=== PATIENT | female | born 1945 | race Caucasian/White ===

== ENCOUNTER → 2019-04-21 | Outpatient (CLI) | payer MEDICARE, OTHER ==
[2019-04-21 09:50] VITALS: BP 149/88; PULSE 78; RESP 16; TEMP 97.6; BMI 24.9
--- NOTE | 2019-04-21 10:29 | P.GSHP ---
History of Present Illness H&P Date: 04/21/19 Chief Complaint: jarett Guillory is a 73-year-old white female who presents for breast evaluation. A bilateral mammogram was performed on . This was felt to be stable benign breast tissue category 2 and repeat mammogram in 1 year was recommended. The patient does not feel anything of concern in her breast. She has no complaints of any nipple discharge or skin changes. She has no history of any trauma or infection of the breast. Pastora had a left breast biopsy done approximately 20 years ago this was a needle biopsy and was benign. Estimated BRCA1 test many years ago and this was negative. Francy model: 5 year risk 7.2% Lifetime risk 17.6% Family History: sister: breast cancer BRCA2 +, at 42 mother: breast cancer at 60 neice: 27 breast cancer maternal aunt: breast cancer 2 maternal cousin: breast cancer patient: basal cell cancer on nose Hormonal History: menarche: 14 G0 menopause: 55 BCP: 20 years hormones: none Surgical history: total knee bilateral carpal tunnel bilateral bunyon foot nose: basal cell Medical History: none Social History: smoke: none alcohol: twice a month drugs: none - Constitutional Constitutional: Denies chills, Denies fever - EENT Eyes: denies blurred vision, denies pain Ears: deny: decreased hearing, tinnitus Ears, nose, mouth and throat: Denies headache, Denies sore throat - Breasts Breasts: bilateral: as per HPI - Cardiovascular Cardiovascular: Denies chest pain, Denies shortness of breath - Respiratory Respiratory: Denies cough, Denies 7 - Gastrointestinal Gastrointestinal: Denies abdominal pain, Denies diarrhea, Denies nausea, Denies vomiting - Genitourinary (Female) Genitourinary: Denies dysuria, Denies hematuria - Menstruation Menstruation: Reports postmenopausal - Musculoskeletal Comment: osteoarthritis - Integumentary Comment: psorisis - Neurological Neurological: Denies numbness, Denies weakness - Psychiatric Psychiatric: Denies anxiety, Denies depression - Endocrine Endocrine: Denies fatigue, Denies weight change - Hematologic/Lymphatic Comment: none - Allergic/Immunologic Comment: none Allergic/Immunologic: Reports as per HPI Past Medical History History of Any Multi-Drug Resistant Organisms: None Reported Smoking Status: Never smoker Medications and Allergies Home Medications Medication Instructions Recorded Confirmed Type Krill Oil 1,000 mg PO DAILY 04/21/19 04/21/19 History levETIRAcetam [Keppra] 500 mg PO Q12HR 04/21/19 04/21/19 History Allergies Allergy/AdvReac Type Severity Reaction Status Date / Time No Known Allergies Allergy Unverified 04/21/19 09:50 Surgical - Exam Vital Signs Temp Pulse Resp BP Pulse Ox 97.6 F 78 16 149/88 100 04/21/19 09:45 04/21/19 09:45 04/21/19 09:45 04/21/19 09:45 04/21/19 09:45 BMI 24.9 - General well developed, well nourished, no distress - Eyes normal ocular movement - ENT no hearing loss, no congestion - Neck no masses, trachea midline - Respiratory normal expansion, normal respiratory effort, clear to auscultation - Cardiovascular Rhythm: regular Heart Sounds: normal: S1, S2 - Integumentary no rash, no abnormal pigmentation - Neurologic no disoriented, no combative - Musculoskeletal normal gait, normal posture - Psychiatric oriented to time, oriented to person, oriented to place, speech is normal, memory intact Breast examination: Right breast: Multi-positional exam fibrocystic changes no dominant masses or nodules of concern Right axilla: No adenopathy of concern Left breast: Multi-positional exam fibrocystic changes no dominant masses or nodules of concern Left axilla: No adenopathy of concern Results mammogram results reviewed Assessment and Plan Assessment: Impression: 1. fibrocystic breast disease 2. strong family history of breast cancer 3. patient history of basal cell cancer of nose 4. Francy model 7.1 % 5 year risk vs 2.2%,and 17.6 % lifetime risk vs. 5.7% We have discussed the fact that she is high risk based on her Francy model evaluation and the patient would consider genetic counseling to repeat her BRCA and other gene testing. Plan: 1. yearly mammograms 2. genetic [place] 3. appt with medical oncology for possible chemoprevention 4. follow up in one year CC: DR. No Mendoza
== END | disposition home or self-care (01) ==
LOC: WWCWWP 09:36
PROVIDERS: ATTEND Surgery
DX: Z53.9 Procedure and treatment not carried out, unspecified reason (principal)

== ENCOUNTER → 2019-11-24 | Outpatient (CLI) | payer MEDICARE, OTHER ==
[2019-11-24 12:57] VITALS: BP 155/85; PULSE 73; RESP 18; TEMP 98.1
--- NOTE | 2019-11-24 13:19 | P.PN ---
Progress Note - Text Progress Note Date: 11/24/19 Pastora is a 74-year-old white female who was noted to have a increased risk for development of breast cancer based and Francy risk assessment evaluation. She has a strong family history of breast cancer her sister had bilateral breast cancer at 42, this was BRCA2 +; her mother had breast cancer at 50, maternal aunt at 45, and a maternal cousin at 35. The patient states she had genetic testing performed through Dr. Alcantara,s office and was told that she did not have a genetic predisposition to development of cancer. We are awaiting those results. Her Francy model risk was estimated to be 7.2% of 5 years and 17.6% lifetime risk. The patient is . She does not use any estrogen products. At this time the patient has close surveillance related to her breasts. Her most recent bilateral mammogram was April,. This was stable benign BIRADS 2. The patient is not complaining of any lumps masses or nodules in either breast. The patient is fully aware of the option of chemoprevention. At this time she has opted not to take chemoprevention. If she changes her mind she will let us know. Otherwise she will be seen again at regular routine evaluation which will be in April 2020 with bilateral mammogram. She has any questions or concerns sooner she will call us. CC: Dr. No Mendoza
== END | disposition home or self-care (01) ==
LOC: WWCWWP 12:28
PROVIDERS: ATTEND Surgery
DX: Z53.9 Procedure and treatment not carried out, unspecified reason (principal)

== ENCOUNTER → 2020-04-26 | Outpatient (CLI) | payer MEDICARE, OTHER ==
--- NOTE | 2020-04-26 11:50 | P.PN ---
Subjective Progress Note Date: 04/26/20 Principal diagnosis: fibrocystic breast disease Pastora is a 74-year-old white female who presents for breast evaluation. A bilateral mammogram was performed on 04-20-20, this was done at [facility] and results are pending. The patient does not feel anything of concern in her breast. She has no complaints of any nipple discharge or skin changes. She has no history of any trauma or infection of the breast. Pastora had a left breast biopsy done approximately 20 years ago this was a needle biopsy and was benign. We have discussed chemoprevention secondary to risk analysis #Francy model however at this time Pastora wishes to just be followed closely. Genetic testing was performed on 2319 which was negative, no clinically significant variance detected Francy model: 5 year risk 7.7% Lifetime risk 17.8% Family History: sister: breast cancer BRCA2 +, at 42 mother: breast cancer at 60 niece: 27 breast cancer maternal aunt: breast cancer 2 maternal cousin: breast cancer patient: basal cell cancer on nose Hormonal History: menarche: 14 G0 menopause: 55 BCP: 20 years hormones: none Surgical history: total knee bilateral carpal tunnel bilateral bunion: foot nose: basal cell Medical History: none Social History: smoke: none alcohol: twice a month drugs: none - Constitutional Constitutional: Denies chills, Denies fever - EENT Eyes: denies blurred vision, denies pain Ears: deny: decreased hearing, tinnitus Ears, nose, mouth and throat: Denies headache, Denies sore throat - Breasts Breasts: bilateral: as per HPI - Cardiovascular Cardiovascular: Denies chest pain, Denies shortness of breath - Respiratory Respiratory: Denies cough - Gastrointestinal Gastrointestinal: Denies abdominal pain, Denies diarrhea, Denies nausea, Denies vomiting - Genitourinary (Female) Genitourinary: Denies dysuria, Denies hematuria - Menstruation Menstruation: Reports postmenopausal - Musculoskeletal Comment: osteoarthritis - Integumentary Comment: psorisis - Neurological Neurological: Denies numbness, Denies weakness - Psychiatric Psychiatric: Denies anxiety, Denies depression - Endocrine Endocrine: Denies fatigue, Denies weight change - Hematologic/Lymphatic Comment: none - Allergic/Immunologic Comment: none Allergic/Immunologic: Reports as per HPI Objective - Constitutional General appearance: Present: average body habitus - EENT Eyes: Present: EOMI ENT: Present: hearing grossly normal - Neck Neck: Present: normal ROM - Respiratory Respiratory: bilateral: CTA - Cardiovascular Rhythm: regular Heart sounds: normal: S1, S2 - Gastrointestinal General gastrointestinal: Present: normal bowel sounds, soft - Integumentary Integumentary: Present: normal turgor - Musculoskeletal Musculoskeletal: Present: gait normal - Psychiatric Psychiatric: Present: A&O x's 3, appropriate affect - Additional findings Additional findings: breast exam: bra: 34C inspection: grade 3 ptosis bilateral Patient: Right breast: Multi-positional exam fibrocystic changes, no dominant masses or nodules of concern Right axilla: No adenopathy of concern Left breast: Fibrocystic changes, no dominant masses or nodules of concern on multiple positional exam Left axilla: No adenopathy of concern Assessment and Plan Assessment: Impression: 1. high risk breast cancer/ Francy risk analysis done 2. fibrocystic breast changes Plan: 1. Obtain report on recent bilateral mammogram/ further recommendation to follow 2. Pending on results of recent bilateral mammogram condition to follow We have discussed chemoprevention regarding 5 year risk of breast cancer at 7.8%. At this time she wishes to be followed closely. CC: DR. No Mendoza encounter 15 minutes, > 50% of time in planning and counselling
[2020-04-26 11:55] VITALS: BP 137/65; PULSE 73; RESP 18; TEMP 98.4
== END | disposition home or self-care (01) ==
LOC: WWCWWP 11:32
PROVIDERS: ATTEND Surgery
DX: Z53.9 Procedure and treatment not carried out, unspecified reason (principal)

== ENCOUNTER → 2021-06-03 | Outpatient (CLI) | payer MEDICARE, OTHER ==
--- NOTE | 2021-06-03 11:06 | MM ---
Reason for exam: additional evaluation requested from abnormal screening. Last mammogram was performed 1 month ago. History: Patient is postmenopausal and is nulliparous. Family history of breast cancer in mother at age 63, breast cancer in sister at age 43, breast cancer in maternal aunt, and breast cancer in 2 cousins. Benign cyst aspiration of the left breast, 2000. Physical Findings: Nurse did not find any significant physical abnormalities on exam. MG 3D Work Up W/Cad HARSHA Bilateral spot compression CC, spot compression MLO, and LM view(s) were taken. Prior study comparison: May 10, 2021, mammogram. The breast tissue is heterogeneously dense. This may lower the sensitivity of mammography. There is no discrete abnormality including area of concern right and left compression. These results were verbally communicated with the patient and result sheet given to the patient on 06/03/21. ASSESSMENT: Benign, BI-RAD 2 RECOMMENDATION: Routine screening mammogram of both breasts in 1 year.
--- NOTE | 2021-06-03 11:07 | USB ---
Reason for exam: additional evaluation requested from abnormal screening. History: Patient is postmenopausal and is nulliparous. Family history of breast cancer in mother at age 63, breast cancer in sister at age 43, breast cancer in maternal aunt, and breast cancer in 2 cousins. Benign cyst aspiration of the left breast, 2000. US Breast Workup HARSHA Right complete breast ultrasound includes all four quadrants, the retroareolar region and axilla. Finding demonstrates no cystic or solid lesion seen. Left complete breast ultrasound includes all four quadrants, the retroareolar region and axilla. Finding demonstrates no cystic or solid lesion seen. These results were verbally communicated with the patient and result sheet given to the patient on 06/03/21. ASSESSMENT: Negative, BI-RAD 1 RECOMMENDATION: Routine screening mammogram of both breasts in 1 year. Manage patient on a clinical basis.
== END | disposition home or self-care (01) ==
LOC: RADMAMWWP 09:18
PROVIDERS: ATTEND Surgery
DX: R92.2 Inconclusive mammogram (principal); Z80.3 Family history of malignant neoplasm of breast; Z78.0 Asymptomatic menopausal state
CPT/HCPCS: 77066; 76641; G0279; 77062

== ENCOUNTER → 2021-06-21 | Outpatient (CLI) | payer MEDICARE, OTHER ==
[2021-06-21 11:15] VITALS: BP 136/83; PULSE 59; RESP 17; TEMP 98.5
--- NOTE | 2021-06-21 11:27 | P.PN ---
Subjective Progress Note Date: 06/21/21 Principal diagnosis: fibrocystic breast disease fibrocystic breast disease Pastora is a 76-year-old white female who presents for breast evaluation. A bilateral mammogram was performed on 06-03-21, this was BIRAD 1. The patient does not feel anything of concern in her breast. She has no complaints of any nipple discharge or skin changes. She has no history of any trauma or infection of the breast. Pastora had a left breast biopsy done approximately 21 years ago this was a needle biopsy and was benign. We have discussed chemoprevention secondary to risk analysis #Francy model however at this time Pastora wishes to just be followed closely. Genetic testing was performed on 2319 which was negative, no clinically significant variance detected Prior Francy model: 5 year risk 7.7% Lifetime risk 17.8% 2021 Francy Model: 5 year risk: 7.2% Lifetime risk: 14.8% Family History: sister: breast cancer BRCA2 +, at 42 mother: breast cancer at 60 niece: 27 breast cancer maternal aunt: breast cancer 2 maternal cousin: breast cancer patient: basal cell cancer on nose Hormonal History: menarche: 14 G0 menopause: 55 BCP: 20 years hormones: none Surgical history: total knee bilateral carpal tunnel bilateral bunion: foot nose: basal cell Medical History: none Social History: smoke: none alcohol: twice a month drugs: none - Constitutional Constitutional: Denies chills, Denies fever - EENT Eyes: denies blurred vision, denies pain Ears: deny: decreased hearing, tinnitus Ears, nose, mouth and throat: Denies headache, Denies sore throat - Breasts Breasts: bilateral: as per HPI - Cardiovascular Cardiovascular: Denies chest pain, Denies shortness of breath - Respiratory Respiratory: Denies cough - Gastrointestinal Gastrointestinal: Denies abdominal pain, Denies diarrhea, Denies nausea, Denies vomiting - Genitourinary (Female) Genitourinary: Denies dysuria, Denies hematuria - Menstruation Menstruation: Reports postmenopausal - Musculoskeletal Comment: osteoarthritis - Integumentary Comment: psorisis - Neurological Neurological: Denies numbness, Denies weakness - Psychiatric Psychiatric: Denies anxiety, Denies depression - Endocrine Endocrine: Denies fatigue, Denies weight change - Hematologic/Lymphatic Comment: none - Allergic/Immunologic Comment: none Allergic/Immunologic: Reports as per HPI Objective - Vital Signs Vital signs: Vital Signs Temp 98.5 F 06/21/21 11:07 Pulse 59 L 06/21/21 11:07 Resp 17 06/21/21 11:07 BP 136/83 06/21/21 11:07 Pulse Ox Intake & Output 06/20/21 06/21/21 06/21/21 18:59 06:59 18:59 Weight 68.039 kg - Exam BMI 25.7 - Constitutional General appearance: Present: cooperative - EENT Eyes: Present: EOMI ENT: Present: hearing grossly normal - Neck Neck: Present: normal ROM - Respiratory Respiratory: bilateral: CTA - Cardiovascular Rhythm: regular Heart sounds: normal: S1, S2 - Gastrointestinal General gastrointestinal: Present: soft - Integumentary Integumentary: Present: normal turgor - Musculoskeletal Musculoskeletal: Present: gait normal - Psychiatric Psychiatric: Present: A&O x's 3, appropriate affect, intact judgment & insight - Additional findings Additional findings: Breast Exam: BRA: 34C inspection: Bilateral grade 2/3 ptosis Palpation: Right breast: Multiple positional exam fibrocystic changes no dominant masses or nodules of concern Right axilla: No adenopathy of concern Left breast: Multi-positional exam fibrocystic changes no dominant masses or nodules of concern Left axilla: No adenopathy of concern Under both breasts are some mild fungal infection nystatin cream be given Assessment and Plan Assessment: Impression/Plan: 1. Positive family history of breast cancer 2. Francy risk evaluation lifetime risk 14.8%/we have discussed in the past chemoprevention and she has declined 3. Recent bilateral mammogram BIRADS 1/repeat mammogram in 1 year 4. If patient notes any changes or concerns she will call us sooner Cc: Dr. Mendoza
== END ==
LOC: WWCWWP 10:59
PROVIDERS: ATTEND Surgery
DX: N60.11 Diffuse cystic mastopathy of right breast (principal); N60.12 Diffuse cystic mastopathy of left breast; Z80.3 Family history of malignant neoplasm of breast

== ENCOUNTER → 2022-06-05 | Outpatient (CLI) | payer MEDICARE, OTHER ==
--- NOTE | 2022-06-06 07:42 | MM ---
Reason for Exam: Screening (asymptomatic). Last screening mammogram was performed 12 month(s) ago. Patient History: Menarche at age 14. Patient has no children. Postmenopausal. 2000, Benign Cyst Aspiration on the left side. Maternal cousin had breast cancer. Maternal cousin had breast cancer. Maternal aunt had breast cancer. Niece had breast cancer under age 50. Sister had breast cancer, age 43. Mother had breast cancer, age 63. Risk Values: Francy 5 year model risk: 6.1%. NCI Lifetime model risk: 12.7%. Prior Study Comparison: 05/10/2021 Screening Mammogram, Unknown. 06/03/2021 Bilateral Diagnostic Mammogram, [facility]. Tissue Density: The breast tissue is heterogeneously dense. This may lower the sensitivity of mammography. Findings: Analyzed By CAD. There is no suspicious group of microcalcifications or new suspicious mass in either breast. Benign-appearing calcifications within both breasts. No significant change from prior exams. Overall Assessment: Benign, BI-RAD 2 Management: Screening Mammogram of both breasts in 1 year. A clinical breast exam by your physician is recommended on an annual basis and results should be correlated with mammographic findings. Electronically signed and approved by: Rod Gallegos D.O.
== END | disposition home or self-care (01) ==
LOC: RADMAMWWP 10:01
PROVIDERS: ATTEND Surgery
DX: Z12.31 Encounter for screening mammogram for malignant neoplasm of breast (principal); Z78.0 Asymptomatic menopausal state; Z80.3 Family history of malignant neoplasm of breast; Z98.890 Other specified postprocedural states
CPT/HCPCS: 77063; 77067

== ENCOUNTER → 2022-06-12 | Outpatient (CLI) | payer MEDICARE, OTHER ==
--- NOTE | 2022-06-12 14:04 | P.PN ---
Subjective Progress Note Date: 06/12/22 Principal diagnosis: fibrocystic breast changes fibrocystic breast disease Pastora is a 77-year-old white female who presents for breast evaluation. A bilateral mammogram was performed on 06-05-22, this was BIRAD 2. The patient does not feel anything of concern in her breast. She has no complaints of any nipple discharge or skin changes. She has no history of any trauma or infection of the breast. Pastora had a left breast biopsy done approximately 22 years ago this was a needle biopsy and was benign. We have discussed chemoprevention secondary to risk analysis #Francy model however at this time Pastora wishes to just be followed closely. Genetic testing was performed on 2319 which was negative, no clinically significant variance detected Prior Francy model: 5 year risk 7.7% Lifetime risk 17.8% 2021 Francy Model: 5 year risk: 7.2% Lifetime risk: 14.8% 2022 Risk: 5 year 6.1% lifetime risk: 12.7% Family History: sister: breast cancer BRCA2 +, at 42 mother: breast cancer at 60 niece: 27 breast cancer maternal aunt: breast cancer 2 maternal cousin: breast cancer patient: basal cell cancer on nose Hormonal History: menarche: 14 G0 menopause: 55 BCP: 20 years hormones: none Surgical history: total knee bilateral carpal tunnel bilateral bunion: foot nose: basal cell Medical History: none Social History: smoke: none alcohol: twice a month drugs: none - Constitutional Constitutional: Denies chills, Denies fever - EENT Eyes: denies blurred vision, denies pain Ears: deny: decreased hearing, tinnitus Ears, nose, mouth and throat: Denies headache, Denies sore throat - Breasts Breasts: bilateral: as per HPI - Cardiovascular Cardiovascular: Denies chest pain, Denies shortness of breath - Respiratory Respiratory: Denies cough - Gastrointestinal Gastrointestinal: Denies abdominal pain, Denies diarrhea, Denies nausea, Denies vomiting - Genitourinary (Female) Genitourinary: Denies dysuria, Denies hematuria - Menstruation Menstruation: Reports postmenopausal - Musculoskeletal Comment: osteoarthritis - Integumentary Comment: psorisis - Neurological Neurological: Denies numbness, Denies weakness - Psychiatric Psychiatric: Denies anxiety, Denies depression - Endocrine Endocrine: Denies fatigue, Denies weight change - Hematologic/Lymphatic Comment: none - Allergic/Immunologic Comment: none Allergic/Immunologic: Reports as per HPI Objective - Constitutional General appearance: Present: cooperative - EENT Eyes: Present: EOMI ENT: Present: hearing grossly normal - Neck Neck: Present: normal ROM - Respiratory Respiratory: bilateral: CTA - Cardiovascular Rhythm: regular Heart sounds: normal: S1, S2 - Gastrointestinal General gastrointestinal: Present: soft - Integumentary Integumentary: Present: normal turgor - Musculoskeletal Musculoskeletal: Present: gait normal - Psychiatric Psychiatric: Present: A&O x's 3, appropriate affect, intact judgment & insight - Additional findings Additional findings: Breast Exam: BRA: 34C inspection: Bilateral grade 2/3 ptosis Palpation: Right breast: Multiple positional exam fibrocystic changes no dominant masses or nodules of concern Right axilla: No adenopathy of concern Left breast: Multi-positional exam fibrocystic changes no dominant masses or nodules of concern Left axilla: No adenopathy of concern Assessment and Plan Assessment: Impression/Plan: 1. Positive family history of breast cancer 2. Francy risk evaluation lifetime risk 14.8%/we have discussed in the past chemoprevention and she has declined again today 3. Recent bilateral mammogram BIRADs 2/ bilateral mammogram in 1 year 4. If patient notes any changes or concerns she will call us sooner Cc: Dr. Mendoza Additional CC's: No Mendoza
== END ==
LOC: WWCWWP 13:13
PROVIDERS: ATTEND Surgery
DX: Z80.3 Family history of malignant neoplasm of breast (principal)

== ENCOUNTER → 2023-06-09 | Outpatient (CLI) | payer MEDICARE, OTHER ==
--- NOTE | 2023-06-10 10:33 | MM ---
Reason for Exam: Screening (asymptomatic). Last mammogram was performed 1 year(s) and 1 month(s) ago. Patient History: Menarche at age 14. Patient has no children. Postmenopausal. 2000, Benign Cyst Aspiration on the left side. Maternal cousin had breast cancer. Maternal cousin had breast cancer. Maternal aunt had breast cancer. Niece had breast cancer under age 50. Sister had breast cancer, age 43. Mother had breast cancer, age 63. Risk Values: Francy 5 year model risk: 6.1%. NCI Lifetime model risk: 12.0%. Prior Study Comparison: 05/10/2021 Screening Mammogram, Unknown. 06/03/2021 Bilateral Diagnostic Mammogram, [facility]. 06/05/2022 Bilateral MG 3D screening mammo w/cad, [facility]. Tissue Density: The breast tissue is heterogeneously dense. This may lower the sensitivity of mammography. Findings: Analyzed By CAD. Pattern appears symmetrical and stable. A couple of benign-appearing punctate calcifications are present. No suspicious groups of microcalcifications, spiculated or lobular masses, architectural distortion or other secondary signs of malignancy are mammographically apparent. Overall Assessment: Benign, BI-RAD 2 Management: Screening Mammogram of both breasts in 1 year. A negative mammogram report should not preclude additional follow up of suspicious palpable abnormalities. Patient should continue monthly self breast exam. A clinical breast exam by your physician is recommended on an annual basis and results should be correlated with mammographic findings. Electronically signed and approved by: Carmine Jones D.O. Radiologis
== END | disposition home or self-care (01) ==
LOC: RADMAMWWP 10:20
PROVIDERS: ATTEND Surgery
DX: Z12.31 Encounter for screening mammogram for malignant neoplasm of breast (principal); Z78.0 Asymptomatic menopausal state; Z80.3 Family history of malignant neoplasm of breast
CPT/HCPCS: 77063; 77067

== ENCOUNTER → 2023-06-12 | Outpatient (CLI) | payer MEDICARE, OTHER ==
--- NOTE | 2023-06-12 12:01 | P.PN ---
Subjective Progress Note Date: 06/12/23 fibrocystic breast disease Pastora is a 78-year-old white female who presents for breast evaluation. A bilateral mammogram was performed on 06-09-23, this was BIRAD 2. The patient does not feel anything of concern in her breast. She has no complaints of any nipple discharge or skin changes. She has no history of any trauma or infection of the breast. Pastora had a left breast biopsy done approximately 23 years ago this was a needle biopsy and was benign. We have discussed chemoprevention secondary to risk analysis #Francy model however at this time Pastora wishes to just be followed closely. Genetic testing was performed on 2319 which was negative, no clinically significant variance detected Prior Francy model: 5 year risk 7.7% Lifetime risk 17.8% 2023 Francy Model: 5 year risk: 6.1% Lifetime risk: 12% Family History: sister: breast cancer BRCA2 +, at 42 mother: breast cancer at 60 niece: 27 breast cancer maternal aunt: breast cancer 2 maternal cousin: breast cancer patient: basal cell cancer on nose Hormonal History: menarche: 14 G0 menopause: 55 BCP: 20 years hormones: none Surgical history: total knee bilateral carpal tunnel bilateral bunion: foot nose: basal cell Medical History: none Social History: smoke: none alcohol: twice a month drugs: none - Constitutional Constitutional: Denies chills, Denies fever - EENT Eyes: denies blurred vision, denies pain Ears: deny: decreased hearing, tinnitus Ears, nose, mouth and throat: Denies headache, Denies sore throat - Breasts Breasts: bilateral: as per HPI - Cardiovascular Cardiovascular: Denies chest pain, Denies shortness of breath - Respiratory Respiratory: Denies cough - Gastrointestinal Gastrointestinal: Denies abdominal pain, Denies diarrhea, Denies nausea, Denies vomiting - Genitourinary (Female) Genitourinary: Denies dysuria, Denies hematuria - Menstruation Menstruation: Reports postmenopausal - Musculoskeletal Comment: osteoarthritis - Integumentary Comment: psorisis - Neurological Neurological: Denies numbness, Denies weakness - Psychiatric Psychiatric: Denies anxiety, Denies depression - Endocrine Endocrine: Denies fatigue, Denies weight change - Hematologic/Lymphatic Comment: none - Allergic/Immunologic Comment: none Allergic/Immunologic: Reports as per HPI Objective - Constitutional General appearance: Present: cooperative - EENT Eyes: Present: EOMI ENT: Present: hearing grossly normal - Neck Neck: Present: normal ROM - Respiratory Respiratory: bilateral: CTA - Cardiovascular Rhythm: regular Heart sounds: normal: S1, S2 - Integumentary Integumentary: Present: normal turgor - Musculoskeletal Musculoskeletal: Present: gait normal - Psychiatric Psychiatric: Present: A&O x's 3, appropriate affect, intact judgment & insight - Additional findings Additional findings: Breast Exam: BRA: 34C inspection: Bilateral grade 2/3 ptosis Palpation: Right breast: Multiple positional exam fibrocystic changes no dominant masses or nodules of concern Right axilla: No adenopathy of concern Left breast: Multi-positional exam fibrocystic changes no dominant masses or nodules of concern Left axilla: No adenopathy of concern Assessment and Plan Assessment: Impression/Plan: 1. Positive family history of breast cancer 2. Francy risk evaluation lifetime risk 12 %, 5 year risk 6.1% we have discussed in the past chemoprevention and she has declined again today 3. 1--2-24 bilateral mammogram BIRADs 2/ bilateral mammogram in 1 year 4. If patient notes any changes or concerns she will call us sooner Cc: Dr. Mendoza Additional CC's: No Mendoza
== END ==
LOC: WWCWWP 11:17
PROVIDERS: ATTEND Surgery
DX: N60.11 Diffuse cystic mastopathy of right breast (principal); N60.12 Diffuse cystic mastopathy of left breast; Z80.3 Family history of malignant neoplasm of breast

== ENCOUNTER → 2024-09-05 | Outpatient (CLI) | payer MEDICARE, OTHER ==
--- NOTE | 2024-09-06 07:23 | MM ---
Reason for Exam: Screening (asymptomatic). Last mammogram was performed 1 year(s) and 2 month(s) ago. Patient History: Menarche at age 14. Patient has no children. Postmenopausal. Patient used Hormonal Contraceptives for 20 years. 2000, Benign Cyst Aspiration on the left side. Maternal cousin had breast cancer. Maternal cousin had breast cancer. Maternal aunt had breast cancer. Niece had breast cancer under age 50. Sister had breast cancer, age 43. Mother had breast cancer, age 63. Risk Values: Francy 5 year model risk: 5.9%. NCI Lifetime model risk: 10.4%. Prior Study Comparison: 06/03/2021 Bilateral Diagnostic Mammogram, [facility]. 06/05/2022 Bilateral MG 3D screening mammo w/cad, [facility]. 06/09/2023 Bilateral MG 3D screening mammo w/cad, [facility]. Tissue Density: The breasts are heterogeneously dense, which may obscure small masses. Findings: Analyzed By CAD. There is no suspicious group of microcalcifications or new suspicious mass in either breast. Overall Assessment: Benign, BI-RAD 2 Management: Screening Mammogram of both breasts in 1 year. . Patient should continue monthly self-breast exams. A clinical breast exam by your physician is recommended on an annual basis. This exam should not preclude additional follow-up of suspicious palpable abnormalities. Note on Francy scores and lifetime risk: 1. A Francy score greater than 3% is considered moderate risk. If this is the case, consider specialist referral to assess eligibility for a risk reducing agent. 2. If overall lifetime risk for the development of breast cancer is 20% or higher, the patient may qualify for future screening with alternating mammogram and breast MRI. [facility], , 09/06/2024 7:20 AM. Electronically signed and approved by: Brendan Rand M.D. Radiologis
== END | disposition home or self-care (01) ==
LOC: RADMAMWWP 16:01
PROVIDERS: ATTEND Surgery
DX: Z12.31 Encounter for screening mammogram for malignant neoplasm of breast (principal); R92.333 Mammographic heterogeneous density, bilateral breasts; Z78.0 Asymptomatic menopausal state; Z92.0 Personal history of contraception; Z80.3 Family history of malignant neoplasm of breast
CPT/HCPCS: 77063; 77067

== ENCOUNTER → 2024-09-22 | Outpatient (CLI) | payer MEDICARE, OTHER ==
[2024-09-22 10:23] VITALS: BP 148/78; PULSE 57; RESP 16; TEMP 97.8
--- NOTE | 2024-09-22 10:26 | P.PN ---
Subjective Progress Note Date: 09/22/24 Principal diagnosis: fibrocystic breast disease 09-22-24 fibrocystic breast disease Pastora is a 79-year-old white female who presents for breast evaluation. A bilateral mammogram was performed on 09-05-24, this was BIRAD 2 and personally interpreted. The patient does not feel anything of concern in her breast. She has no complaints of any nipple discharge or skin changes. She has no history of any trauma or infection of the breast. Pastora had a left breast biopsy done approximately 23 years ago this was a needle biopsy and was benign. We have discussed chemoprevention secondary to risk analysis #Francy model however at this time Pastora wishes to just be followed closely. Genetic testing was performed on 2319 which was negative, no clinically significant variance detected Prior Francy model: 5 year risk 7.7% Lifetime risk 17.8% 2023 Francy Model: 5 year risk: 6.1% Lifetime risk: 12% 2024 Francy Risk: 5 year: 5.9% lifetime risk: 10.4% Family History: sister: breast cancer BRCA2 +, at 42 mother: breast cancer at 60 niece: 27 breast cancer maternal aunt: breast cancer 2 maternal cousin: breast cancer patient: basal cell cancer on nose Hormonal History: menarche: 14 G0 menopause: 55 BCP: 20 years hormones: none Surgical history: total knee bilateral carpal tunnel bilateral bunion: foot nose: basal cell Medical History: none Social History: smoke: none alcohol: twice a month drugs: none - Constitutional Constitutional: Denies chills, Denies fever - EENT Eyes: denies blurred vision, denies pain Ears: deny: decreased hearing, tinnitus Ears, nose, mouth and throat: Denies headache, Denies sore throat - Breasts Breasts: bilateral: as per HPI - Cardiovascular Cardiovascular: Denies chest pain, Denies shortness of breath - Respiratory Respiratory: Denies cough - Gastrointestinal Gastrointestinal: Denies abdominal pain, Denies diarrhea, Denies nausea, Denies vomiting - Genitourinary (Female) Genitourinary: Denies dysuria, Denies hematuria - Menstruation Menstruation: Reports postmenopausal - Musculoskeletal Comment: osteoarthritis - Integumentary Comment: psorisis - Neurological Neurological: Denies numbness, Denies weakness - Psychiatric Psychiatric: Denies anxiety, Denies depression - Endocrine Endocrine: Denies fatigue, Denies weight change - Hematologic/Lymphatic Comment: none - Allergic/Immunologic Comment: none Allergic/Immunologic: Reports as per HPI Objective - Constitutional General appearance: Present: cooperative - EENT Eyes: Present: EOMI ENT: Present: hearing grossly normal - Neck Neck: Present: normal ROM - Respiratory Respiratory: bilateral: CTA - Cardiovascular Rhythm: regular Heart sounds: normal: S1, S2 - Integumentary Integumentary: Present: normal turgor - Musculoskeletal Musculoskeletal: Present: gait normal - Psychiatric Psychiatric: Present: A&O x's 3, appropriate affect, intact judgment & insight - Additional findings Additional findings: Breast Exam: BRA: 34C inspection: Bilateral grade 2/3 ptosis Palpation: Right breast: Multiple positional exam fibrocystic changes no dominant masses or nodules of concern Right axilla: No adenopathy of concern Left breast: Multi-positional exam fibrocystic changes no dominant masses or nodules of concern Left axilla: No adenopathy of concern Assessment and Plan Assessment: Impression/Plan: 1. Positive family history of breast cancer 2. Francy risk evaluation lifetime risk 10.4%, 5 year risk 5.9% we have discussed in the past chemoprevention and she has declined again today 3. 3-31-25 bilateral mammogram BIRADs 2/ bilateral mammogram in 1 year, personally interpreted 4. If patient notes any changes or concerns she will call us sooner Cc: Dr. Mendoza Additional CC's: No Mendoza
== END ==
LOC: WWCWWP 09:45
PROVIDERS: ATTEND Surgery
DX: Z12.31 Encounter for screening mammogram for malignant neoplasm of breast (principal); N60.19 Diffuse cystic mastopathy of unspecified breast; Z80.3 Family history of malignant neoplasm of breast